=== PATIENT | female | born 1975 | race Caucasian/White ===

== ENCOUNTER 2024-04-02 11:01 | Outpatient (CLI) | payer BC, OTHER, SELFPAY ==
--- NOTE | ~2024-04-02 | US_ITS ---
EXAMINATION: US thyroid DATE: 04/02/2024 11:56 INDICATION: Hypothyroidism TECHNIQUE: Multiple ultrasound images of the thyroid were obtained. COMPARISON: None. FINDINGS: The right thyroid lobe measures 4.0 x 1.3 x 1.7 cm. The left thyroid lobe measures 3.3 x 1.3 x 1.3 c m. Thyroid isthmus measures 2 mm in thickness. Wider than tall solid hypoechoic nodules with smooth m argins and without echogenic foci (TI-RADS 4, moderately suspicious , FNA if >=1.5 cm, annual followu p is >=1 cm) measuring 9 mm in the left thyroid lobe and 8 mm the right thyroid lobe. There is hetero geneous echogenicity with coarsened echotexture and mildly increased vascular flow on color Doppler t hroughout the thyroid. IMPRESSION: 1. A couple subcentimeter TI-RADS 4 bilateral thyroid nodules which remain below criteria for either biopsy or follow-up. 2. Diffuse heterogeneous echogenicity with coarsened echotexture and mildly increased vascular flow t hroughout the thyroid which can be seen in the setting of thyroiditis. Reviewed, dictated and finalized at location A. IMPRESSION: 1. A couple subcentimeter TI-RADS 4 bilateral thyroid nodules which remain belo w criteria for either biopsy or follow-up. 2. Diffuse heterogeneous echogenicity with coarsened echotexture and mildly inc reased vascular flow throughout the thyroid which can be seen in the setting of thyroiditis.
== END 2024-04-02 11:02 | disposition home or self-care (01) ==
LOC: ANHIMG 11:06
PROVIDERS: PCP Physician Assistant; Visit Provider Internal Medicine
DX: E04.2 Nontoxic multinodular goiter (principal); E03.9 Hypothyroidism, unspecified; E06.9 Thyroiditis, unspecified
CPT/HCPCS: 76536